=== PATIENT | female | born 1995 | race Caucasian/White ===

== ENCOUNTER 2022-11-22 18:06 | Inpatient (IN) ==
[2022-11-22] MEDS ORDERED: Dinoprostone 10 MG VAG.SUPP VAGINAL ONE (19:34)
[2022-11-22] MEDS ORDERED: Buffered Lidocaine 1% SYRIN 1 ml INTRADERM ONE (19:34)
[2022-11-22 21:36] LABS: Urine Appearance Clear; Urine Bilirubin Negative (Negative); Urine Blood Negative (Negative); Urine Color Straw; Urine Glucose Negative (Negative); Urine Ketones Negative (Negative); Urine Nitrite Negative (Negative); Urine Protein Negative (Negative); Urine Specific Gravity 1.008 (1.002-1.030); Urine Urobilinogen Negative (Negative)
[2022-11-22 21:44] LABS: Urine Bacteria 1+ (Absent); Urine Red Blood Cell Trace(0-2/hpf) (Absent); Urine Squamous Epithelial Cell Present (Absent); Urine White Blood Cell Trace(0-5/hpf) (Absent)
[2022-11-22 22:06] LABS: Ur Microalbumin Obstetric mg/L < 15.0 mg/L
[2022-11-23] MEDS ORDERED: Lactated Ringers 1000 ml BAG 1,000 ML IV ONE (07:30)
[2022-11-23] MEDS ORDERED: Lactated Ringers 1000 ml BAG 1,000 ML IV SCH (08:00)
[2022-11-23] MEDS ORDERED: miSOPROStol 100 mcg TAB VAGINAL ONE (19:35)
[2022-11-23] MEDS ORDERED: Promethazine INJ(RESTRICTED) 25 MG/ML 1 ml VIAL IM ONE (19:36)
[2022-11-23] MEDS ORDERED: Nalbuphine 10 MG/ML 1 ML VIAL IM ONE (19:36)
[2022-11-24] MEDS ORDERED: miSOPROStol 100 mcg TAB PO ONE (04:05)
[2022-11-24] MEDS ORDERED: Promethazine INJ(RESTRICTED) 25 MG/ML 1 ml VIAL IM ONE (04:07)
[2022-11-24] MEDS ORDERED: Nalbuphine 10 MG/ML 1 ML VIAL IM ONE (04:07)
[2022-11-24] MEDS ORDERED: Oxytocin in LR 20,000 MILLI.UNIT/1,000 ML BAG IV SCH (15:30)
[2022-11-24 16:55] LABS: ABS Lymphocytes 1.1 10^3/ul (1.0-4.8); Eosinophil % 0.2 %; Hematocrit 37 % (35-47); Hemoglobin 12.2 g/dL (12.0-16.0); Lymphocyte % 8.5 %; Mean Corpuscular HGB Conc 33 g/dL (31-36); Mean Corpuscular Hemoglobin 30 pg (27-31); Mean Corpuscular Volume 90 fL (80-97); Mean Platelet Volume 9.2 fL (7.4-10.4); Nucleated Red Blood Cells % 0.1; Platelet Count 229 10^3/uL (150-450); Red Blood Count 4.04 10^6 /uL (3.70-4.87); Red Cell Distribution Width 14 % (10-15); White Blood Count 13.2 10^3/uL (3.5-10.8)
[2022-11-25] MEDS ORDERED: Succinylcholine 200 mg VIAL 20 mg/ml 10 ml VIAL (200 mg) IV SCH ×2
[2022-11-25] MEDS ORDERED: OBEPIDURAL (200 ML) 200 ML EPIDURAL ONE (12:29)
[2022-11-25] MEDS ORDERED: Bupivacaine 0.25% SDV PF 10 ML VIAL INJ ONE (12:30)
[2022-11-25] MEDS ORDERED: Lidocaine 1.5% EPI 1:200,000 30 ML SDV ONE (12:31)
[2022-11-25] MEDS ORDERED: Sodium Citrate/Citric Acid LIQ 15 ML UDC PO PRN (13:16)
[2022-11-25] MEDS ORDERED: Lactated Ringers 1000 ml BAG 1,000 ML IV ONE (13:16)
[2022-11-25] MEDS ORDERED: Lactated Ringers 1000 ml BAG 1,000 ML IV SCH ×2 (14:00→23:45)
[2022-11-25] MEDS ORDERED: OBEPIDURAL (200 ML) 200 ML EPIDURAL SCH (14:00)
[2022-11-25] MEDS ORDERED: Lidocaine 2% w/ EPI 1:200,000 MPF 20 ML SDV VIAL ONE (20:37)
[2022-11-25 20:49] LABS: ABS Basophils 0.1 10^3/ul (0-0.2); ABS Lymphocytes 1.3 10^3/ul (1.0-4.8); ABS Neutrophils 15.1 10^3/ul (1.5-7.7); Eosinophil % 0.2 %; Hematocrit 39 % (35-47); Hemoglobin 12.9 g/dL (12.0-16.0); Lymphocyte % 7.6 %; Mean Corpuscular HGB Conc 33 g/dL (31-36); Mean Corpuscular Hemoglobin 31 pg (27-31); Mean Corpuscular Volume 93 fL (80-97); Mean Platelet Volume 9.7 fL (7.4-10.4); Nucleated Red Blood Cells % 0.2; Platelet Count 229 10^3/uL (150-450); Red Blood Count 4.18 10^6 /uL (3.70-4.87); Red Cell Distribution Width 14 % (10-15); White Blood Count 17.5 10^3/uL (3.5-10.8)
[2022-11-25] MEDS ORDERED: Oxytocin 10 UNITS/ML 1 ML VIAL ONE (22:00)
[2022-11-25] MEDS ORDERED: Chloroprocaine 3% 20 ml VIAL ONE (22:01)
[2022-11-25] MEDS ORDERED: Propofol 10 MG/ML 20 ML BTL ONE (22:07)
[2022-11-25] MEDS ORDERED: Phenylephrine 40 mcg/mL 10mL (400mcg) SYRINGE ONE (22:11)
[2022-11-25] MEDS ORDERED: Morphine PF AMP (0.5MG/ML) 5 MG/10 ML AMP ONE (22:20)
[2022-11-25] MEDS ORDERED: Ondansetron 4 mg VIAL 2 MG/ML 2 ml VIAL ONE (22:32)
[2022-11-25] MEDS ORDERED: Dexamethasone IV 4 MG/ML VIAL 1 ml VIAL ONE (22:32)
[2022-11-25] MEDS ORDERED: Naloxone 0.4 mg VIAL 0.4 mg/ml 1 ml VIAL IV PUSH PRN (22:42)
[2022-11-25] MEDS ORDERED: Acetaminophen IV 1 GM/100ML 1,000 MG/100 ML BAG IV PRN (22:42)
[2022-11-25] MEDS ORDERED: Ondansetron 4 mg VIAL 2 MG/ML 2 ml VIAL IV PRN (22:42)
[2022-11-25] MEDS ORDERED: Metoclopramide 5 MG/ML VIAL (10 mg) IV PRN (22:42)
[2022-11-25] MEDS ORDERED: Witch Hazel PAD JAR TOPICAL PRN (23:05)
[2022-11-25] MEDS ORDERED: Glycerin ADULT 2.4 gm SUPP PR PRN (23:05)
[2022-11-25] MEDS ORDERED: Dibucaine 1% OINT 28.35 GM TUBE PR PRN (23:05)
[2022-11-25] MEDS ORDERED: Carboprost Tromethamine 250 mcg 1 ml VIAL IM ONE (23:09)
[2022-11-26] MEDS ORDERED: Carboprost Tromethamine 250 mcg 1 ml VIAL ONE (00:36)
[2022-11-26] MEDS ORDERED: Oxytocin 10 UNITS/ML 1 ML VIAL ONE (01:00)
[2022-11-26 06:47] LABS: Hematocrit 25 % (35-47); Hemoglobin 8.2 g/dL (12.0-16.0); Mean Corpuscular HGB Conc 33 g/dL (31-36); Mean Corpuscular Hemoglobin 31 pg (27-31); Mean Corpuscular Volume 92 fL (80-97); Platelet Count 196 10^3/uL (150-450); Red Blood Count 2.67 10^6 /uL (3.70-4.87); Red Cell Distribution Width 13 % (10-15); White Blood Count 20.1 10^3/uL (3.5-10.8)
[2022-11-26 08:25] LABS: ABS Lymphocytes 0.8 10^3/ul (1.0-4.8); ABS Monocytes 1.6 10^3/ul (0-0.8); ABS Neutrophils 17.7 10^3/ul (1.5-7.7); Lymphocyte % 3.9 %
[2022-11-26] MEDS ORDERED: Iron Sucrose 200 MG in NS 0.9% 100 ml BAG 100 ML IVPB ONE (11:32)
[2022-11-28 07:52] VITALS: BP 130/67
== END 2022-11-28 15:59 | disposition home or self-care (01) | DRG 540 ==
LOC: MCHOBOUT 18:06 → MCHOB 11-23 07:55
PROVIDERS: ADMIT Midwife; ATTEND Midwife